=== PATIENT | female | born 1995 | race Asian ===

== ENCOUNTER 2018-01-02 20:17 | Outpatient (CLI) | payer OTHER | END 2018-01-02 20:55 | disposition short-term general hospital (02) | LOC: AMB 20:17 | DX: S40.012A Contusion of left shoulder, initial encounter (principal); V43.62XA Car passenger injured in collision with other type car in traffic accident, initial encounter; Y93.89 Activity, other specified; Y92.89 Other specified places as the place of occurrence of the external cause; S40.021A Contusion of right upper arm, initial encounter | CPT/HCPCS: A0425; A0429 ==